=== PATIENT | female | born 1995 | race Caucasian/White ===

== ENCOUNTER 2023-10-01 19:52 | Outpatient (CLI) | payer OTHER ==
[~2023-10-01] VITALS: Ht 167.6 cm; Wt 171.6 kg
[2023-10-01 20:32] VITALS: BP 118/61
== END 2023-10-01 20:50 | disposition home or self-care (01) ==
LOC: M LDO 19:52
PROVIDERS: ATTEND Advanced Practice Midwife
DX: O36.8130 Decreased fetal movements, third trimester, not applicable or unspecified (principal); Z88.8 Allergy status to other drugs, medicaments and biological substances; Z86.19 Personal history of other infectious and parasitic diseases; Z3A.29 29 weeks gestation of pregnancy
CPT/HCPCS: 59025; G0463